=== PATIENT | female | born 1955 | race Caucasian/White ===

== ENCOUNTER → 2023-07-09 12:11 | Outpatient (REF) | payer MEDICARE, SELFPAY | LOC: DHCBC/DCA 12:11 | PROVIDERS: ATTENDING PHYSICIAN Internal Medicine Cardiovascular Disease; FAMILY PHYSICIAN Internal Medicine | DX: I25.10 Atherosclerotic heart disease of native coronary artery without angina pectoris (principal); R94.31 Abnormal electrocardiogram [ECG] [EKG]; E78.5 Hyperlipidemia, unspecified | CPT/HCPCS: 78452; 93017; A9500 ==

== ENCOUNTER 2023-07-31 07:31 | Day surgery (SDC) | payer MEDICARE, SELFPAY ==
[2023-07-31] VITALS (20 sets, daily range): BP systolic 92–168; BP diastolic 59–91; BMI 31.9
[2023-07-31] MEDS: ASPIR LOW (ENTERIC COATED) 243 MG PO (08:36)
[2023-07-31 08:44] LABS: % Basophils 0.7 % (0-2); % Eosinophils 3.4 % (0-6); % Immature Granulocytes 0.2 % (0-0.5); % Lymphocytes 18.9 % (20.5-51.1); % Monocytes 6.7 % (1.7-9.3); % Neutrophils 70.1 % (42.2-75.2); Absolute Eosinophils 0.2 10^3/uL (0-0.7); Absolute Lymphocytes 1.2 10^3/uL (1.2-3.4); Absolute Monocytes 0.4 10^3/uL (0.1-0.6); Absolute Neutrophils 4.3 10^3/uL (1.4-6.5); Hematocrit 43.8 % (37.0-47.0); Hemoglobin 14.7 g/dL (12.0-16.0); Mean Corp Hgb Conc. 33.6 g/dL (33.0-37.0); Mean Corpuscular Hgb 30.6 pg (27.0-31.0); Mean Corpuscular Volume 91.3 fL (81.0-99.0); Nucleated Red Blood Cells % 0 %; Red Cell Dist. Width 12.8 % (11.5-14.5); White Blood Cell Count 6.1 10^3/uL (4.8-10.8)
[2023-07-31 08:48] LABS: ALT (SGPT) 21 U/L (0-35); AST (SGOT) 27 U/L (14-36); Albumin 4.9 g/dl (3.5-5.0); Alkaline Phosphatase 91 U/L (38-126); Blood Urea Nitrogen 22 mg/dl (7-17); Calcium 9.6 mg/dl (8.4-10.2); Carbon Dioxide 27 mmol/L (22-30); Chloride 103 mmol/L (98-107); Glucose 102 mg/dl (70-99); Potassium 4.4 mmol/L (3.5-5.1); Sodium 138 mmol/L (135-145); Total Bilirubin 1.4 mg/dl (0.2-1.3); Total Protein 7.7 g/dl (6.3-8.2); eGFR > 60.00
[2023-07-31 09:10] LABS: INR 0.92; PT 12.2 Sec (11.4-14.6)
[2023-07-31 09:16] LABS: APTT 19.7 Sec (23.4-35.0)
[2023-07-31 09:54] LABS: ACT-LR - POC 310 Seconds (116-155)
[2023-07-31 10:25] LABS: Mean Platelet Volume 11.2 fL (7.4-10.4); Platelet Count 170 10^3/uL (130-400)
[2023-07-31 10:41] LABS: ACT-LR - POC 300 Seconds (116-155)
[2023-07-31] MEDS: NSS 1000 IV (13:24)
--- NOTE | 2023-07-31 13:44 | ITS.CL.CATH ---
History Teacher - Catheterization
Cardiac Catheterization
Procedure Report:
LEFT HEART CATH AND CORONARY INTERVENTION
Date of Procedure: July 31, 2023
Referring: Dr. Zahraa Anguiano
PROCEDURES:
1. Left heart catheterization with coronary and single-plane left ventriculography
2. Successful stenting of the mid RCA with a 3.0 x 22 mm Thai stent that was implanted at nominal pressures and postdilated to high pressures with a 3 mm noncompliant balloon
3. Successful stenting of the mid PDA with a 2.5 x 15 mm Durham stent
INDICATION: This is a 68-year-old female who reported an episode of diaphoresis and nausea in March. Since this time she began noticing exertional chest discomfort. A recent stress study was notable for small area of mildly decreased uptake
that was reversible in the basal inferior to mid inferior segment consistent with ischemia versus soft tissue attenuation. Her electrocardiogram did demonstrate [address] depression in leads II, III, and aVF lasting several minutes into recovery.
She reported worsening chest tightness after the results of the stress test and is now referred for coronary angiography.
ACCESS: Right radial artery, 6 Eritrean sheath
HEMODYNAMICS (mmHg):
AO (s/d, m) : 172/81, 106
LV (s/d) : 174/11
LVEDP : 25
CORONARY FINDINGS
Dominance: Right
LEFT MAIN: Normal
LEFT ANTERIOR DESCENDING: The LAD is moderately calcified and arises normally from the left main and runs in the anterior interventricular groove. There are tandem 50-60% stenosis in the proximal and mid LAD. The more proximal stenosis is just
beyond the first septal weight loss sales consultant while the second stenosis is beyond the first diagonal branch. The remainder of the LAD has diffuse luminal irregularities but no focal obstructive stenosis.
CIRCUMFLEX: The circumflex is a medium caliber nondominant vessel giving rise to a very small OM1. OM 2 is a moderate caliber vessel that bifurcates distally. The AV continuation of the circumflex supplies a small bifurcating posterolateral branch.
RIGHT CORONARY: The right coronary artery is a dominant vessel that is 100% occluded in its midportion. There are faint right to right bridging collaterals in the distal RCA fills via well developed igcy-[id number] collaterals from both the LAD and
circumflex.
VENTRICULOGRAPHY: Left ventriculography is performed in an WEBER projection. The digital single-plane left ventricular ejection fraction is visually estimated at 65% and no regional wall motion abnormalities are noted.
ANGIOPLASTY PROCEDURE DETAIL: At the conclusion of the diagnostic angiogram the decision was made to proceed with percutaneous revascularization of the 100% occluded mid RCA. Bridging collaterals were highly suggestive of chronic total occlusion.
Intravenous heparin was administered throughout the procedure and the ACT was monitored. The origin of the right coronary artery was cannulated with a 6 Eritrean JR4 guiding catheter and a Fielder XT was advanced through a C3 [employer] Quick Cross
to the occluded segment in the mid RCA. With a little while the Fielder XT crossed the short segment occlusion in the mid RCA and the microcatheter was advanced beyond the occluded segment with a moderate degree of difficulty. A low volume
contrast injection was performed through the Quick Cross confirming intravascular location of the microcatheter and wire. A BMW guidewire was then readvanced through the microcatheter and into the distal vessel. Balloon predilation was performed
and was followed by stenting of the mid RCA with a 3.0 x 22 mm Thai stent that was advanced over the guidewire in position with angiographic and fluoroscopic guidance. The stent was implanted at nominal pressures then postdilated to high pressures
with a 3.0 mm noncompliant balloon. Angiography now revealed a high-grade stenosis in the proximal-midportion of the PDA. The BMW wire was redirected across the stenotic segment in the PDA and into the distal vessel. Balloon predilation was
performed with a 2.0 x 12 mm Euphora balloon and the vessel was then stented with a 2.5 x 15 mm Durham stent that was implanted at nominal pressures and postdilated to high pressures with a 2.5 x 12 mm noncompliant balloon with a nice angiographic
result
RADIATION SUMMARY: Fluoro Time (min): 16.1, Dose (mGy): 736.6, DAP (Gy.cm2) : 50.7
CONCLUSIONS
1. 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 Successful stenting of the
proximal to mid PDA with a 2.5 x 15 mm Thai stent that was postdilated with a 2.5 mm noncompliant balloon
2. Moderate proximal to mid LAD atherosclerotic disease. I do not believe an IFR of the LAD would be antegrade given the well-developed collaterals to the RCA.
3. Preserved left ventricular systolic function
RECOMMENDATIONS
1. Uninterrupted dual antiplatelet therapy for 12 months
2. High intensity statin. Last LDL measured 81 mg/dL. We have doubled atorvastatin from 20 to 40 mg and added 10 mg of Zetia for goal LDL of 55 mg/dL or less
3. Will need aggressive blood pressure control. Beta-khoa would be very reasonable to control anginal symptoms
4. May consider repeat exercise stress testing for recurring anginal symptoms to assess for significant LAD ischemia.
Copy to: Dr. Zahraa Anguiano
--- NOTE | 2023-07-31 13:45 | PTCARENOTE ---
PT complains of slight chest pain to scapula pain. No EKG noted. BILINGUAL KINDERGARTEN TEACHER Juan notified. Pt educated on post procedure pain expectations. No new orders.
--- NOTE | 2023-07-31 16:28 | W.PN.UPDATE ---
Update Note
Progress Note Update
Pt seen post RCA and PDA PCI w/2 BROOKS. Right radial cath site without ht/bleeding, non tender. OOB to chair. Post EKG NSR, no acute changes. Complained of mild intermittent chest discomfort/'squeeze', self limiting- likely post procedure stretch
pain, as it has now resolved. Pt understands importance of uninterrupted DAPT w/asa, plavix. Will increase atorvastatin to 40mg/daily and start zetia 10mg/daily as instructed per Dr. Vital. Cardiac rehab consulted. Followup with RUPAL MARTINEZ in [address] Vital thereafter. Home today if cath site/tele remain stable.
[2023-08-03 15:45] LABS: ACT-LR - POC > 397 Seconds (116-155)
== END 2023-07-31 16:40 | disposition home or self-care (01) ==
LOC: CATH 07:31
PROVIDERS: ATTENDING PHYSICIAN Internal Medicine Interventional Cardiology; FAMILY PHYSICIAN Family Medicine; OTHER PHYSICIAN Internal Medicine Cardiovascular Disease
DX: I25.119 Atherosclerotic heart disease of native coronary artery with unspecified angina pectoris (principal); I25.84 Coronary atherosclerosis due to calcified coronary lesion; R11.0 Nausea; R61 Generalized hyperhidrosis; R94.31 Abnormal electrocardiogram [ECG] [EKG]; Z79.02 Long term (current) use of antithrombotics/antiplatelets; Z79.82 Long term (current) use of aspirin; I10 Essential (primary) hypertension; E78.00 Pure hypercholesterolemia, unspecified; R93.1 Abnormal findings on diagnostic imaging of heart and coronary circulation; I34.0 Nonrheumatic mitral (valve) insufficiency
CPT/HCPCS: 80053; 85025; 85347; 85610; 85730; 93005; 93458; C1725; C1769; C1874; C1894; C9600; C9601; C9607; Q9967

== ENCOUNTER 2023-09-01 11:43 | Emergency (ER) | payer MEDICARE, SELFPAY ==
[2023-09-01 11:44] VITALS: BP 180/94
[2023-09-01 12:33] LABS: % Basophils 0.5 % (0-2); % Eosinophils 2.4 % (0-6); % Immature Granulocytes 0.2 % (0-0.5); % Lymphocytes 17.2 % (20.5-51.1); % Monocytes 8.4 % (1.7-9.3); % Neutrophils 71.3 % (42.2-75.2); Absolute Eosinophils 0.1 10^3/uL (0-0.7); Absolute Lymphocytes 0.7 10^3/uL (1.2-3.4); Absolute Monocytes 0.4 10^3/uL (0.1-0.6); Hematocrit 38.1 % (37.0-47.0); Hemoglobin 13.5 g/dL (12.0-16.0); Mean Corp Hgb Conc. 35.4 g/dL (33.0-37.0); Mean Corpuscular Hgb 31.4 pg (27.0-31.0); Mean Corpuscular Volume 88.6 fL (81.0-99.0); Nucleated Red Blood Cells % 0 %; Platelet Count 163 10^3/uL (130-400); Red Cell Dist. Width 12.7 % (11.5-14.5); White Blood Cell Count 4.2 10^3/uL (4.8-10.8)
[2023-09-01 12:48] LABS: ALT (SGPT) 19 U/L (0-35); AST (SGOT) 26 U/L (14-36); Albumin 4.7 g/dl (3.5-5.0); Alkaline Phosphatase 83 U/L (38-126); Blood Urea Nitrogen 14 mg/dl (7-17); Calcium 10.1 mg/dl (8.4-10.2); Carbon Dioxide 28 mmol/L (22-30); Chloride 102 mmol/L (98-107); Glucose 107 mg/dl (70-99); Potassium 4.1 mmol/L (3.5-5.1); Sodium 141 mmol/L (135-145); Total Bilirubin 1.1 mg/dl (0.2-1.3); Total Protein 7.2 g/dl (6.3-8.2); eGFR > 60.00
[2023-09-01 12:56] LABS: Troponin I < 0.012 ng/ml
[2023-09-01 13:14] VITALS: BP 179/68
[2023-09-01 14:00] VITALS: BP 132/58
--- NOTE | 2023-09-01 14:43 | ED.GENMED ---
History of Present Illness
General
Chief Complaint: Chest Pain
Source: patient
Exam Limitations: none
Time Seen by Provider: 09/01/23 12:12
Nursing documentation reviewed up to this point in time: agreed with
Travel History
Have you had any contact with someone who has COVID-19?: No
Do you have any symptoms of coronavirus? Fever > 100 degrees, chills, cough, shortness of breath, sore throat, loss of taste or smell, muscle aches, or headache?: No
History of Present Illness
History of Present Illness:
68-year-old female past ministry of CAD hypertension hyperlipidemia presenting to the emergency department today with concerns of chest discomfort described as sharp to the central chest roughly 8 hours prior to arrival to the emergency department
that woke her from her sleep. Has had ongoing chest pressure after having a stent placed 1 month ago. Did take her Plavix and aspirin today. Symptoms now very minimal. Denies significant shortness of breath nausea vomiting numbness weakness
diaphoresis.
Past History
Past History
ED Past Medical History: Negative IDDM
ED Past Surgical History: Appendectomy
Social History
Tobacco: Non-smoker
Alcohol: Other
Personal:
Living: with family
Employment: Employed
Family History
Family History: Other
Review of Systems
Review of Systems
Allergies reviewed?: Yes
All Other Systems: ROS reviewed and negative except as documented in HPI and ROS
Phy Exam
Physical Exam
Physical Exam:
GENERAL: Alert , in no apparent distress
EYE: pupils equal and reactive
NECK: Supple, no significant adenopathy.
ENT: o/p clr, mmm.
CARDIAC: Regular rate and rhythm .
LUNGS: Clear breath sounds bilaterally, no acute respiratory distress, no wheezes/rales/rhonchi
ABDOMEN: Soft, without focal tenderness, no r/g, no cvat
NEUROLOGICAL: Alert and oriented, no focal neuro deficits
SKIN: Warm and dry, skin intact.
MUSCULOSKELETAL: No edema, well perfused.
PSYCH: Normal and appropriate interaction.
Scores
Heart Score for Chest Pain Patients
STEMI patient?: No
History: Slightly or Non-Suspicious
ECG: Normal
Age: >/= 65 years
Risk Factors: >/= 3 Risk Factors or History of CAD
Troponin: </= Normal Limit
Heart Score for Chest Pain Patients: 4
Heart Score Risk: 20.3% MACE over next 6 weeks
Course
Orders/Labs/Results
Orders:
Orders
09/01/23 11:44
ECG [Electrocardiogram (*1)] Urgent
Reason for Study: Chest Pain
EKG- Treatment ONCE
09/01/23 12:18
CR Chest - 2 Views Urgent
Comment:
Reason For Exam: cp
09/01/23 12:24
Complete Blood Count/With Diff Urgent
Comprehensive Metabolic Panel Urgent
Troponin I Urgent
Abnormal Lab Results
09/01/23
12:24
WBC 4.2 L 10^3/uL
(4.8-10.8)
MCH 31.4 H pg
(27.0-31.0)
MPV 11.0 H fL
(7.4-10.4)
Absolute Lymphs (auto) 0.7 L 10^3/uL
(1.2-3.4)
Lymphocytes % 17.2 L %
(20.5-51.1)
Glucose 107 H mg/dl
(70-99)
09/01/23 12:24
09/01/23 12:24
Vital Signs
Initial and Last Documented VS:
Initial Vital Signs
Temp Pulse Resp BP Pulse Ox
99.4 F 76 16 180/94 100
09/01/23 11:44 09/01/23 11:44 09/01/23 11:44 09/01/23 11:44 09/01/23 11:44
Last Documented Vital Signs
Temp Pulse Resp BP Pulse Ox
99.4 F 62 26 132/58 97
09/01/23 11:44 09/01/23 15:00 09/01/23 15:00 09/01/23 14:00 09/01/23 15:00
MDM/Problems Addressed
MDM/Problems Addressed:
68-year-old female presenting to the emergency department today with concerns of chest discomfort woke her from her sleep last night as well as ongoing chest discomfort over the past month after getting 2 stents placed. Arrival here blood pressure
elevated otherwise vital signs unremarkable. Labs unremarkable EKG unchanged troponin negative chest x-ray normal. Case discussed with cardiology that felt comfortable with outpatient follow-up considering normal workup. Very unlikely to be PE
symptoms do not seem to be consistent with dissection chest x-ray normal. Stable for outpatient management return precautions given.
*Critical Care Note
Total Time (30-74mins, 75-104mins- exclusive of procedures): Not Applicable
ED Attending Note
-
Portions of this chart may have been created with voice recognition software.� Occasional wrong word or��sound alike� substitutions may have occurred due to the inherent limitations of voice recognition software.
Discharge Plan
Departure
Patient Disposition: Home (Routine Discharge)
Date of Disposition: 09/01/23
Time of Disposition: 14:46
Patient with high blood pressure during this ER visit?: No
Condition: Good
Covid-19: Not Applicable
Discharge Problem:
Chest pain
Instructions: Chest Pain DCA Follow Up
Prescriptions:
No Action
flaxseed oil 1,000 mg Capsule
1,200 mg PO DAILY
clopidogrel 75 mg tablet
75 mg PO DAILY Qty: 90 3RF
atorvastatin [Lipitor] 40 mg Tablet
40 mg PO HS
metoprolol succinate [Toprol XL] 50 mg tablet extended release 24 hr
50 mg PO HS
amlodipine 5 mg Tablet
5 mg PO DAILY
aspirin 81 mg Tablet,Delayed Release (Dr/Ec)
81 mg PO DAILY
vitamin B complex [Super B Complex] Tablet
1 tab PO DAILY
Acidophilus Capsule
1 cap PO DAILYPRN PRN (Reason: supplement)
valsartan [Diovan] 160 mg Tablet
320 mg PO DAILY@1300
cholecalciferol (vitamin D3) 25 mcg (1,000 unit) Tablet
25 mcg PO DAILY PRN (Reason: supplement)
De3 Dry Eye [place] Benefits 800 mg-186.67 mg-8.33 mcg Capsule
2 cap PO DAILYPRN PRN (Reason: supplement)
Vitamin C
1 tab PO DAILYPRN PRN (Reason: supplement)
cyanocobalamin (vitamin B-12)
1 tab PO DAILYPRN PRN (Reason: supplement)
Patient Comments:
09/01/2023, sublingual.
Referrals:
Cristy Marrufo MD [Family Provider] -
Activity Restrictions/Additional Instructions:
You came to the emergency department today with concerns of chest discomfort. Here had a reassuring evaluation. Please follow closely with cardiology. Return to the emergency department for any worsening, new or concerning symptoms.
Interventions
Interventions:
*General Assessment Last Done: 09/01/23 14:18
ED- Fall Risk Assessment Last Done: 09/01/23 12:42
*ED COVID-19 Vaccine History Last Done: 09/01/23 14:17
*Nursing Disposition Last Done: 09/01/23 15:34
ED- Cardiac Assessment Last Done: 09/01/23 12:41
Discharge Date and Time
Discharge Date/Time: 09/01/23 15:36
Print Language: ETHIOPIAN
== END 2023-09-01 15:36 | disposition home or self-care (01) ==
LOC: EMR 11:43
PROVIDERS: Physician Assistant; EMERGENCY PHYSICIAN Emergency Medicine; FAMILY PHYSICIAN Family Medicine
DX: R07.89 Other chest pain (principal); I25.10 Atherosclerotic heart disease of native coronary artery without angina pectoris; I10 Essential (primary) hypertension; E78.00 Pure hypercholesterolemia, unspecified; Z90.49 Acquired absence of other specified parts of digestive tract; Z95.5 Presence of coronary angioplasty implant and graft
CPT/HCPCS: 99283; 71046; 80053; 84484; 85025; 93005

== ENCOUNTER 2023-09-18 11:33 | Outpatient (RCR) | payer MEDICARE, SELFPAY | END 2023-09-18 23:59 | disposition home or self-care (01) | LOC: CRHB 11:33 | PROVIDERS: ATTENDING PHYSICIAN Internal Medicine Cardiovascular Disease; FAMILY PHYSICIAN Internal Medicine | DX: I25.10 Atherosclerotic heart disease of native coronary artery without angina pectoris (principal); Z95.5 Presence of coronary angioplasty implant and graft | CPT/HCPCS: G0422; G0423 ==

== ENCOUNTER → 2023-09-21 08:55 | Outpatient (REF) | payer MEDICARE, SELFPAY | LOC: HWRCS 08:55 | PROVIDERS: ATTENDING PHYSICIAN Internal Medicine Cardiovascular Disease; FAMILY PHYSICIAN Family Medicine | DX: I25.10 Atherosclerotic heart disease of native coronary artery without angina pectoris (principal); I34.0 Nonrheumatic mitral (valve) insufficiency | CPT/HCPCS: 93306 ==

== ENCOUNTER 2023-10-16 10:01 | Outpatient (RCR) | payer MEDICARE, SELFPAY | END 2023-10-16 23:59 | disposition home or self-care (01) | LOC: CRHB 10:01 | PROVIDERS: ATTENDING PHYSICIAN Internal Medicine Cardiovascular Disease; FAMILY PHYSICIAN Internal Medicine | DX: I25.10 Atherosclerotic heart disease of native coronary artery without angina pectoris (principal); Z95.5 Presence of coronary angioplasty implant and graft | CPT/HCPCS: G0422; G0423 ==

== ENCOUNTER → 2023-11-16 11:48 | Outpatient (REF) | payer MEDICARE, SELFPAY | LOC: DHCBC/DCA 11:48 | PROVIDERS: ATTENDING PHYSICIAN Internal Medicine Cardiovascular Disease; FAMILY PHYSICIAN Family Medicine | DX: R07.89 Other chest pain (principal); I25.10 Atherosclerotic heart disease of native coronary artery without angina pectoris | CPT/HCPCS: 78452; 93017; A9500 ==

== ENCOUNTER → 2023-11-18 08:05 | Outpatient (REF) | payer MEDICARE, SELFPAY | LOC: WDC 08:05 | PROVIDERS: ATTENDING PHYSICIAN Obstetrics & Gynecology Gynecology; FAMILY PHYSICIAN Family Medicine | DX: Z12.31 Encounter for screening mammogram for malignant neoplasm of breast (principal) | CPT/HCPCS: 77063; 77067 ==

== ENCOUNTER 2023-11-18 10:49 | Outpatient (RCR) | payer MEDICARE, SELFPAY | END 2023-11-18 23:59 | disposition home or self-care (01) | LOC: CRHB 10:49 | PROVIDERS: ATTENDING PHYSICIAN Internal Medicine Cardiovascular Disease; FAMILY PHYSICIAN Internal Medicine | DX: I25.10 Atherosclerotic heart disease of native coronary artery without angina pectoris (principal); Z95.5 Presence of coronary angioplasty implant and graft | CPT/HCPCS: G0422; G0423 ==

== ENCOUNTER 2023-12-18 10:29 | Outpatient (RCR) | payer MEDICARE, SELFPAY | END 2023-12-18 23:59 | disposition home or self-care (01) | LOC: CRHB 10:29 | PROVIDERS: ATTENDING PHYSICIAN Internal Medicine Cardiovascular Disease; FAMILY PHYSICIAN Internal Medicine | DX: I25.10 Atherosclerotic heart disease of native coronary artery without angina pectoris (principal); Z95.5 Presence of coronary angioplasty implant and graft | CPT/HCPCS: G0422; G0423 ==

== ENCOUNTER → 2023-12-25 08:19 | Outpatient (REF) | payer MEDICARE, SELFPAY | LOC: RAD 08:19 | PROVIDERS: ATTENDING PHYSICIAN Internal Medicine Cardiovascular Disease; FAMILY PHYSICIAN Family Medicine | DX: I65.29 Occlusion and stenosis of unspecified carotid artery (principal) | CPT/HCPCS: 93880 ==

== ENCOUNTER → 2023-12-28 08:18 | Outpatient (REF) | payer MEDICARE, SELFPAY | LOC: RAD 08:18 | PROVIDERS: ATTENDING PHYSICIAN Family Medicine; OTHER PHYSICIAN Internal Medicine Cardiovascular Disease; REFERRING PHYSICIAN Internal Medicine Gastroenterology | DX: R10.11 Right upper quadrant pain (principal); R74.8 Abnormal levels of other serum enzymes | CPT/HCPCS: 76700 ==

== ENCOUNTER 2024-01-07 13:00 | Outpatient (RCR) | payer MEDICARE, SELFPAY ==
[2024-01-14 12:43] LABS: HDL Cholesterol 45 mg/dl; LDL Cholesterol, Calculated 65 mg/dl; Total Cholesterol 124 mg/dl (50-199); Triglyceride 70 mg/dl (10-149); Very Low Density Lipoprotein 14 mg/dl (0-30)
== END 2024-01-13 12:05 | disposition home or self-care (01) ==
LOC: CRHB 13:00
PROVIDERS: ATTENDING PHYSICIAN Internal Medicine Cardiovascular Disease; FAMILY PHYSICIAN Internal Medicine
DX: I25.10 Atherosclerotic heart disease of native coronary artery without angina pectoris (principal); Z95.5 Presence of coronary angioplasty implant and graft
CPT/HCPCS: 36415; 80061; G0422; G0423

== ENCOUNTER → 2024-05-31 09:41 | Outpatient (REF) | payer MEDICARE, SELFPAY | LOC: WDC 09:41 | PROVIDERS: ATTENDING PHYSICIAN Obstetrics & Gynecology Gynecology; FAMILY PHYSICIAN Family Medicine | DX: R92.2 Inconclusive mammogram (principal) | CPT/HCPCS: 76641 ==

== ENCOUNTER 2024-07-28 06:30 | Day surgery (SDC) | payer MEDICARE, SELFPAY | END 2024-07-28 10:56 | disposition home or self-care (01) | LOC: GI 06:30 | PROVIDERS: ATTENDING PHYSICIAN Internal Medicine Gastroenterology | DX: K63.5 Polyp of colon (principal); K57.30 Diverticulosis of large intestine without perforation or abscess without bleeding; K64.8 Other hemorrhoids; K29.70 Gastritis, unspecified, without bleeding; K29.50 Unspecified chronic gastritis without bleeding; K26.9 Duodenal ulcer, unspecified as acute or chronic, without hemorrhage or perforation; K31.89 Other diseases of stomach and duodenum | CPT/HCPCS: 45380; 43239; 88305; 88342 ==

== ENCOUNTER → 2024-11-22 08:35 | Outpatient (REF) | payer MEDICARE, SELFPAY | LOC: WDC 08:35 | PROVIDERS: ATTENDING PHYSICIAN Obstetrics & Gynecology Gynecology; FAMILY PHYSICIAN Family Medicine | DX: Z12.31 Encounter for screening mammogram for malignant neoplasm of breast (principal) | CPT/HCPCS: 77063; 77067 ==

== ENCOUNTER → 2024-12-12 13:46 | Outpatient (REF) | payer MEDICARE, SELFPAY | LOC: RAD 13:46 | PROVIDERS: ATTENDING PHYSICIAN Nurse Practitioner Adult Health; FAMILY PHYSICIAN Family Medicine | DX: M79.675 Pain in left toe(s) (principal) | CPT/HCPCS: 73660 ==

== ENCOUNTER → 2024-12-21 13:01 | Outpatient (REF) | payer MEDICARE, SELFPAY | LOC: RAD 13:01 | PROVIDERS: ATTENDING PHYSICIAN Nurse Practitioner Adult Health; FAMILY PHYSICIAN Family Medicine | DX: R19.09 Other intra-abdominal and pelvic swelling, mass and lump (principal) | CPT/HCPCS: 76882 ==